=== PATIENT | female | born 1975 | race Caucasian/White ===

== ENCOUNTER → 2016-08-30 | Outpatient (CLI) | payer OTHER ==
[~2016-08-30] MED LIST: CYCL1TAB29 PO; MELO-1 PO; MULT1TAB84 PO; PANT40TA3 PO
[2016-08-30 11:20] LABS: HEMATOCRIT 40.5 % (35.0-46.0); MEAN CELL VOLUME 90.7 FL (80.0-100.0); MEAN CORPUSCULAR HEMOGLOBIN 30.5 PG (27.0-34.0); MEAN CORPUSCULAR HGB CONC 33.6 % (32.0-36.0); PLATELET COUNT 292 TH/MM3 (150-450); RED BLOOD COUNT 4.47 MIL/MM3 (4.00-5.30); RED CELL DISTRIBUTION WIDTH 12.6 % (11.6-17.2); REVIEW FLAG FINAL; WHITE BLOOD COUNT 6.2 TH/MM3 (4.0-11.0)
== END ==
LOC: CPRE 09:42
PROVIDERS: ATTEND Obstetrics & Gynecology
DX: Z01.812 Encounter for preprocedural laboratory examination (principal); R32 Unspecified urinary incontinence; N92.0 Excessive and frequent menstruation with regular cycle
CPT/HCPCS: 36415; 84703; 85027

== ENCOUNTER 2016-09-04 06:00 | Observation (INO) | payer OTHER ==
[~2016-09-04] VITALS: Ht 167.6 cm; Wt 94.5 kg
[2016-09-04] MEDS ORDERED: MIDAZOLAM HCL 2 MG/2 ML VIAL IV SCH (06:30)
[2016-09-04] MEDS ORDERED: METOPROLOL TARTRATE 25 MG TAB PO PRN (06:30)
[2016-09-04] MEDS ORDERED: INSULIN HUMAN REGULAR 1,000 UNITS/10 ML VIAL SQ PRN (06:30)
[2016-09-04] MEDS ORDERED: ONDANSETRON HCL 4 MG/2 ML VIAL IV PUSH SCH (06:30)
[2016-09-04] MEDS ORDERED: POVIDONE IODINE 5% (ANTISEPSIS KIT) 4 APPLICATIONS EACH NARE PRN (06:30)
[2016-09-04] MEDS ORDERED: SODIUM CHLORID 0.9% 500 ML IV PRN (06:30)
[2016-09-04] MEDS ORDERED: LACTATED RINGER'S 1000 ML IV PRN (06:30)
[2016-09-04] MEDS ORDERED: ceFAZolin 1,000 MG/NS 100 ML IV SCH ×2 (06:30)
[2016-09-04] MEDS ORDERED: CHLORHEXIDINE GLUCONATE 2 % 1 PACK (2 CLOTHS) TOPICAL PRN (06:30)
[2016-09-04 06:31] VITALS: BP 125/82; PULSE 82; RESP 16; TEMP 98.9; O2SAT 98
[2016-09-04] MEDS ORDERED: VASOPRESSIN INJ 20 UNITS/ML VIAL ONE (06:58)
[2016-09-04] MEDS ORDERED: FLUORESCEIN SOD 10% SOLN 500 MG/5 ML AMP ONE (06:59)
[2016-09-04] MEDS ORDERED: ACETAMINOPHEN 1000 MG/100 ML VIAL IV ONE (07:39)
[2016-09-04] MEDS ORDERED: FAMOTIDINE 20 MG/2 ML VIAL ONE (07:41)
[2016-09-04] MEDS ORDERED: DEXAMETHASONE SOD PHOS 4 MG/ML VIAL ONE (07:42)
[2016-09-04] MEDS ORDERED: MIDAZOLAM HCL 2 MG/2 ML VIAL ONE (07:42)
[2016-09-04] MEDS ORDERED: fentaNYL CITRATE 250 MCG/5 ML AMP ONE (09:48)
[2016-09-04] MEDS ORDERED: MORPHINE SULFATE 30 MG/30 ML PCA ONE (09:53)
--- NOTE | 2016-09-04 10:01 | MP ---
cc: AGUSTÍN ARMENTA DATE OF SURGERY: 09/04/2016. PREOPERATIVE DIAGNOSIS Leiomyomata uteri, menorrhagia, stress urinary incontinence. POSTOPERATIVE DIAGNOSIS Leiomyomata uteri, menorrhagia, stress urinary incontinence. PROCEDURE Laparoscopic assisted supracervical hysterectomy and bilateral salpingectomy and transverse obturator tape urethral suspension and cystoscopy. SURGEON Agustín Armenta MD ANESTHESIA General. ESTIMATED BLOOD LOSS 100 ccs. COMPLICATIONS None. FINDINGS The patient had a uterus that was approximately 7 weeks size with several small posterior fundal fibroids noted. The ovaries and fallopian tubes were unremarkable. The anterior and posterior cul-de-sac were free of disease. The upper abdominal organs were normal as far as could be visualized. On cystoscopy the patient was noted to have a normal bladder and urethra with no evidence of trauma from the surgery. DESCRIPTION OF PROCEDURE The patient was brought to the operating room and following general anesthesia was placed in dorsal lithotomy position. Her vagina, abdomen and perineum were prepped and draped. A HUMI catheter was placed in the uterus and a Messer catheter into the bladder. A 1 cm subumbilical skin incision was made. Veress needle was inserted and 3 liters of CO2 was infused into the abdomen. Veress needle was then removed and laparoscope was placed without difficulty. A second and third puncture site were created under direct visualization. The findings were as noted above. The harmonic scalpel was used to clamp, cut and seal the upper broad ligaments and round ligaments. The bladder peritoneum was incised and the bladder was sharply dissected off of the anterior cervix. Uterine vessels were then skeletonized and then clamped, cut and sealed with the harmonic scalpel. The cervix was then transected across the upper portion with the harmonic scalpel. The stump of the cervix and endocervical canal were cauterized for hemostasis. The uterus was then morcellated and removed. The fallopian tubes were then sealed across the mesosalpinx with the harmonic scalpel and removed. The pelvis was irrigated and good hemostasis was noted at all sites. The CO2 gas was allowed to escape and the trocars were removed. Attention was next directed at the transverse obturator tape urethral suspension. A 2-3 cm anterior vaginal wall incision was made beneath the urethra. The lateral dissection was performed in a sharp fashion until the obturator membrane was palpated. The Solex system device was then inserted easily on each side. It was checked for adequate pressure beneath the urethra and this was found to be very good. Cystoscopy was then performed with the findings as noted above. The vaginal mucosa was then closed with a running locking #2-0 Vicryl stitch. Messer catheter was placed and clear urine was obtained. The patient was then taken to the recovery room in good condition with all counts correct. MD DELPHINE De Santiago/TLL /9:43 AM /9:52 AM
[2016-09-04] MEDS ORDERED: KETOROLAC TROMETHAMINE 30 MG/ML (IVP) VIAL ONE (10:10)
[2016-09-04] MEDS ORDERED: MORPHINE SULFATE 30 MG/30 ML PCA IV SCH (10:15)
[2016-09-04] MEDS ORDERED: NALOXONE HCL 0.4 MG/ML AMP IV PRN (10:15)
[2016-09-04] MEDS ORDERED: diphenhydrAMINE HCL 50 MG/ML VIAL IV PUSH PRN (10:15)
[2016-09-04 10:55] VITALS: BP 122/74; PULSE 58; RESP 18; TEMP 96.1; O2SAT 97
[2016-09-04] MEDS ORDERED: PROPOFOL 200 MG/20 ML AMP IV ONE (12:00)
[2016-09-04] MEDS ORDERED: NEOSTIGMINE 3 MG/3 ML SYR IV ONE (12:00)
[2016-09-04] MEDS ORDERED: ONDANSETRON HCL 4 MG/2 ML VIAL IV PUSH ONE (12:00)
[2016-09-04] MEDS ORDERED: LACTATED RINGER'S 1000 ML INJ 1,000 ML IV ONE (12:00)
[2016-09-04] MEDS: PCA - TOTAL MG MORPHINE DELIVERED PER SHIFT SCH ×2 (15:18→22:00)
[2016-09-04 16:00] VITALS: BP 104/69; PULSE 73; RESP 18; TEMP 98; O2SAT 97
[2016-09-04] MEDS ORDERED: oxyCODONE/ACETAMINOPHEN 5 MG/325 MG TAB PO PRN (17:00)
[2016-09-04] MEDS ORDERED: ONDANSETRON HCL 4 MG/2 ML VIAL IV PUSH PRN (17:00)
[2016-09-04] MEDS ORDERED: KETOROLAC TROMETHAMINE 30 MG/ML (IVP) VIAL IV PUSH ONE (17:00)
[2016-09-04] MEDS: DEXT 5%-NACL 0.45% 1000 ML INJ 1,000 ML IV SCH (17:26)
[2016-09-04 20:00] VITALS: BP 115/66; PULSE 78; RESP 17; TEMP 98.4; O2SAT 98
[2016-09-05] VITALS: BP 100/61; PULSE 71; RESP 16; TEMP 98.4; O2SAT 98
[2016-09-05] MEDS: DEXT 5%-NACL 0.45% 1000 ML INJ 1,000 ML IV SCH (01:54)
[2016-09-05 04:00] VITALS: BP 125/69; PULSE 64; RESP 20; TEMP 98.1; O2SAT 98
[2016-09-05 05:56] LABS: HEMATOCRIT 35.5 % (35.0-46.0); REVIEW FLAG FINAL
[2016-09-05] MEDS: PCA - TOTAL MG MORPHINE DELIVERED PER SHIFT SCH ×2 (06:10→10:52)
[2016-09-05 08:00] VITALS: BP 120/65; PULSE 68; RESP 18; TEMP 98.5; O2SAT 97
[2016-09-05 13:00] VITALS: BP 141/82; PULSE 66; RESP 18; TEMP 97.6; O2SAT 98
== END 2016-09-05 14:29 | disposition home or self-care (01) ==
LOC: HSDC 06:00 → HOCA 10:57
PROVIDERS: ADMIT Obstetrics & Gynecology; ATTEND Obstetrics & Gynecology
DX: D25.9 Leiomyoma of uterus, unspecified (principal); N92.0 Excessive and frequent menstruation with regular cycle; N39.3 Stress incontinence (female) (male)
CPT/HCPCS: 00840; 57288; 58542; 85014; 85018; 86850; 86900; 86901; 88307; C1771; G0378; J0131; J0690; J1100; J1885; J2250; J2270; J2405; J2710; J3010; J7120